=== PATIENT | male | born 1995 | race Hispanic/Latino ===

== ENCOUNTER 2017-03-24 08:01 | Outpatient (CLI) | payer OTHER ==
--- NOTE | 2017-03-24 10:21 | CT ---
CT ABDOMEN AND PELVIS WITH AND WITHOUT IV CONTRAST: Date: 03/24/17 HISTORY: Left lower quadrant pain with diarrhea. FINDINGS: The lung bases are clear. The liver, spleen, pancreas, adrenal glands, and kidneys are normal. Calcif ied gallstones are seen. No calculi seen in the kidneys, ureters, or the urinary bladder. No hydroure teronephrosis is noted on either side. No free air, free fluid, or lymphadenopathy seen in the abdomen or pelvis. The small bowel loops are not abnormally dilated. A normal appearing appendix is present. No pericolonic inflammatory changes a re seen. The abdominal aorta is of normal caliber. No osteolytic or osteoblastic lesions are seen. IMPRESSION: Unremarkable exam. POS: [facility]
== END 2017-03-24 08:02 | disposition home or self-care (01) ==
LOC: CT 08:01
PROVIDERS: ATTEND Family Medicine
DX: R10.32 Left lower quadrant pain (principal)
CPT/HCPCS: 74178

== ENCOUNTER 2017-12-12 00:32 | Emergency (ER) | payer OTHER ==
[2017-12-12] MEDS ORDERED: Ibuprofen 600 MG TAB ONE (01:14)
== END 2017-12-12 01:45 | disposition home or self-care (01) ==
LOC: SCSER 00:32
DX: J06.9 Acute upper respiratory infection, unspecified (principal); J45.909 Unspecified asthma, uncomplicated; F17.210 Nicotine dependence, cigarettes, uncomplicated
CPT/HCPCS: 87081; 87430; 99283

== ENCOUNTER 2017-12-14 13:22 | Outpatient (CLI) | payer OTHER ==
--- NOTE | 2017-12-14 14:53 | RAD ---
CHEST TWO VIEWS: HISTORY: Hemoptysis. COMPARISON: 11/16/2015 FINDINGS: Two views of the chest show normal sized cardiomediastinal silhouette. There is no evidence of consol idation, mass, or pleural effusion. The bones are unremarkable. IMPRESSION: No evidence of acute cardiopulmonary disease. POS: [facility]
== END 2017-12-14 13:23 | disposition home or self-care (01) ==
LOC: BICRAD 13:22
PROVIDERS: ATTEND Family Medicine
DX: R04.2 Hemoptysis (principal)
CPT/HCPCS: 71046

== ENCOUNTER 2018-05-06 08:54 | Outpatient (CLI) | payer BC, OTHER ==
--- NOTE | 2018-05-06 09:19 | RAD ---
LEFT KNEE 3 VIEWS: Date: 05/06/18 HISTORY: Left knee pain. FINDINGS: Small osteophyte adjacent to the inferior aspect of the proximal tibiofibular joint. No fracture, dis location, or other acute process. IMPRESSION: Mild degenerative changes. No fracture or dislocation. POS: [facility]
== END 2018-05-06 08:55 | disposition home or self-care (01) ==
LOC: BICRAD 08:54
PROVIDERS: ATTEND Family Medicine
DX: M25.562 Pain in left knee (principal); M17.12 Unilateral primary osteoarthritis, left knee

== ENCOUNTER 2018-06-19 12:11 | Emergency (ER) | payer BC, OTHER ==
--- NOTE | 2018-06-19 12:45 | RAD ---
XR Hand Rt 3 View STANDARD: 06/19/2018 12:21 PM CLINICAL INDICATION: Hand injury after punching a wall COMPARISON: None. TECHNIQUE: 3 views. Laterality: Right hand. FINDINGS: Bones: No acute osseous abnormality. Joints: Joint spaces are preserved.. Soft Tissue: There is soft tissue swelling of the dorsal aspect of the right hand. IMPRESSION: No acute osseous abnormality..
== END 2018-06-19 12:39 | disposition home or self-care (01) ==
LOC: SCSER 12:11
DX: S60.221A Contusion of right hand, initial encounter (principal); J45.909 Unspecified asthma, uncomplicated; F17.210 Nicotine dependence, cigarettes, uncomplicated; W22.01XA Walked into wall, initial encounter

== ENCOUNTER 2018-10-25 08:06 | Outpatient (CLI) | payer BC, OTHER ==
--- NOTE | 2018-10-25 09:56 | MRI ---
MRI LEFT KNEE PERFORMED WITHOUT CONTRAST ENHANCEMENT: HISTORY: Left knee pain. FINDINGS: The anterior as well as posterior cruciate ligaments are intact. The medial and lateral menisci have a normal shape and appearance. The medial and lateral collateral ligaments and the iliotibial band regions appear unremarkable. The patellar articular cartilage is intact. The medial and lateral patellar retinaculum and quadrice ps and patellar tendons are normal. IMPRESSION: No evidence of meniscal or cruciate ligament injury. POS: [facility]
== END 2018-10-25 08:07 | disposition home or self-care (01) ==
LOC: BICMRI 08:06
PROVIDERS: ATTEND Family Medicine
DX: M23.92 Unspecified internal derangement of left knee (principal)

== ENCOUNTER 2019-12-22 11:08 | Outpatient (CLI) | payer BC, OTHER ==
--- NOTE | 2019-12-22 11:33 | RAD ---
XR Shoulder Lt 2 View History: Acute pain of left shoulder Comparison: None. Findings: Within the proximal left humeral metaphysis is a well-defined area of sclerosis along the i nner table of the lateral cortex. No acute fracture or malalignment. Impression: 1. No acute fracture. 2. Relatively well-defined triangular-shaped endosteal calcification along the proximal lateral left humeral diaphysis. Dedicated humeral radiographs recommended.
--- NOTE | 2019-12-22 14:13 | RAD ---
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 N o fracture, cortical irregularity or periosteal reaction. IMPRESSION: No acute abnormality.
== END 2019-12-22 11:09 | disposition home or self-care (01) ==
LOC: BICRAD 11:08
PROVIDERS: ATTEND Family Medicine
DX: M25.512 Pain in left shoulder (principal); R93.7 Abnormal findings on diagnostic imaging of other parts of musculoskeletal system; M61.9 Calcification and ossification of muscle, unspecified

== ENCOUNTER 2020-03-21 08:44 | Outpatient (CLI) | payer BC | END 2020-03-21 08:45 | disposition home or self-care (01) | LOC: BICMRI 08:44 | PROVIDERS: ATTEND Orthopaedic Surgery Hand Surgery | DX: M54.12 Radiculopathy, cervical region (principal) | CPT/HCPCS: 72141 ==

== ENCOUNTER 2022-05-20 10:54 | Outpatient (CLI) | payer BC | END 2022-05-20 10:55 | disposition home or self-care (01) | LOC: BICRAD 10:54 | PROVIDERS: ATTEND Nurse Practitioner Family | DX: M79.662 Pain in left lower leg (principal) ==

== ENCOUNTER 2022-06-18 14:39 | Outpatient (CLI) | payer BC | END 2022-06-18 14:40 | disposition home or self-care (01) | LOC: SCSMRI 14:39 | PROVIDERS: ATTEND Orthopaedic Surgery Hand Surgery | DX: M79.89 Other specified soft tissue disorders (principal) ==

== ENCOUNTER 2023-03-29 17:42 | Emergency (ER) | payer BC ==
[2023-03-29 19:27] LABS: #Eosinphils 0.3 thou/uL (0.0-0.7); #Monocytes 0.7 thou/uL (0.11-0.59); #Neutrophils 5.2 thou/uL (1.40-6.50); %Basophils 0.5 % (0.0-1.0); %Eosinophils 3.6 % (0.0-10.0); %Lymphocytes 28.2 % (21.0-51.0); %Monocytes 8.4 % (0.0-10.0); Hematocrit 43.9 % (42.0-52.0); Hemoglobin 14.7 g/dL (14.0-18.0); Mean Corpuscular HGB CONC 33.5 g/dL (32.0-36.0); Mean Corpuscular Hemoglobin 29.2 pg (27.0-31.0); Mean Corpuscular Volume 87.3 fl (78.0-98.0); Mean Platelet Volume 9.6 fL (7.4-10.4); Platelet Count 318 10x3/uL (130-400); RBC Distribution Width 12.6 % (11.5-14.5); Red Blood Cell (RBC) Count 5.03 mill/uL (4.70-6.10); White Blood Cell (WBC) Count 8.8 10x3/uL (4.8-10.8)
[2023-03-29 19:55] LABS: Troponin I Less than 0.010 ng/mL (< 0.028)
[2023-03-29 20:01] LABS: ALT (SGPT) 48 U/L (8-55); AST (SGOT) 21 U/L (5-34); Albumin 4.4 g/dL (3.5-5.0); Alkaline Phosphatase 54 U/L (40-110); Anion Gap 12 mmol/L (10-20); BUN (Urea Nitrogen) 20 mg/dL (8.9-20.6); Bilirubin, Total 0.3 mg/dL (0.2-1.2); Calc. Creatinine Clearance 0 mL/min (70-130); Calcium 9.1 mg/dL (7.8-10.44); Carbon Dioxide 27 mmol/L (22-29); Chloride 102 mmol/L (98-107); Estimated GFR 114; Globulin 3.4 g/dL (2.4-3.5); Glucose 86 mg/dL (70-105); Potassium 4.2 mmol/L (3.5-5.1); Protein, Total 7.8 g/dL (6.0-8.3); Sodium 137 mmol/L (136-145)
== END 2023-03-29 21:40 | disposition home or self-care (01) ==
LOC: ERS 17:42
DX: J01.90 Acute sinusitis, unspecified (principal); R07.9 Chest pain, unspecified; F17.210 Nicotine dependence, cigarettes, uncomplicated
CPT/HCPCS: 36415; 71046; 80053; 84484; 85025; 93005